=== PATIENT | male | born 1970 ===

== ENCOUNTER 2025-03-15 16:38 | Emergency (ER) | payer OTHER ==
[2025-03-15] MEDS ORDERED: KETOROLAC TROMETHAMINE 30 MG/1 ML VIAL ONE (17:27)
[2025-03-15] MEDS ORDERED: ACETAMINOPHEN INJECTION 100 ML ONE (17:27)
[2025-03-15] MEDS: ACETAMINOPHEN 1000 MG/100 ML BAG IVPB ONE (17:31)
[2025-03-15] MEDS: KETOROLAC TROMETHAMINE 15 MG/ML VIAL IVPUSH ONE (17:31)
[2025-03-15 17:42] VITALS: BP 146/86; PULSE 59; RESP 18; TEMP 98.2; BMI 38.5
[2025-03-15] MEDS: LIDOCAINE 5% TOPICAL PATCH TP ONE (18:20)
[2025-03-16] MEDS ORDERED: LIDOCAINE PATCH REMOVAL MC SCH (06:00)
[2025-03-17 20:02] LABS: HCV DIAGNOSTIC IN-HOUSE W/RFLX NON-REACTIVE (NONREACTIVE)
[2025-03-17 20:17] LABS: HIV INTERPRETATION NEGATIVE (NEGATIVE)
== END 2025-03-15 18:28 | disposition home or self-care (01) ==
LOC: JER 16:38
PROC: 3E033NZ Introduction of Analgesics, Hypnotics, Sedatives into Peripheral Vein, Percutaneous Approach (ICD-10-PCS; principal; 2025-03-15)
PROC: 3E0333Z Introduction of Anti-inflammatory into Peripheral Vein, Percutaneous Approach (ICD-10-PCS; 2025-03-15)
DX: M54.50 Low back pain, unspecified (principal); R20.0 Anesthesia of skin; X50.1XXA Overexertion from prolonged static or awkward postures, initial encounter
CPT/HCPCS: 36415; 86803; 87389; 99284-25